=== PATIENT | female | born 1990 | race Hispanic/Latino ===

== ENCOUNTER 2021-06-28 10:18 | Emergency (ER) | payer SELFPAY ==
[2021-06-28] MEDS ORDERED: Iopamidol 300 61% 100 ML VIAL FS ONE (10:27)
[2021-06-28 11:07] LABS: Bilirubin Neg (Negative); Blood, Urine 10 (Negative); Clarity Clear (Clear); Glucose, Urine (Dipstick) Normal (Negative); Ketone, Urine Negative (Negative); Leukocyte Negative (Negative); Nitrite Negative (Negative); Protein, Urine (Dipstick) Negative (Neg-Trace); Urobilinogen Normal mg/dL (Less than 2)
[2021-06-28 11:11] LABS: #Eosinphils 0.2 10x3/uL (0.0-0.5); #Monocytes 0.2 10x3/uL (0.0-1.1); #Neutrophils 3.9 10x3/uL (1.5-8.4); %Basophils 0.5 % (0.0-2.0); %Eosinophils 2.6 % (0.0-6.0); %Lymphocytes 34.2 % (18.0-47.0); %Monocytes 2.5 % (0.0-10.0); Hemoglobin 11.1 g/dL (12.0-15.5); Mean Corpuscular Hemoglobin 21.3 pg (27.0-33.0); Mean Corpuscular Volume 68.8 fl (81.6-98.3); Mean Platelet Volume 10.1 fl (7.4-10.4); Platelet Count 278 10x3/uL (150-450); RBC Distribution Width 20.5 % (11.5-14.5); White Blood Cell (WBC) Count 6.5 10x3/uL (3.5-10.5)
[2021-06-28 11:14] LABS: Pregnancy Test - Urine (BHCG) Negative (Negative); Pregu Control Background? CLEAR/WHITE (CLR/WHITE); Pregu Control Bar Appear? YES (CONTROL BAR)
[2021-06-28 11:27] LABS: Bacteria/HPF Rare-Few HPF (None Seen); RBC/HPF 0-3 HPF (0-3); Squamous Epithelial 0-3 HPF (0-3); WBC/HPF 0-3 HPF (0-3)
[2021-06-28 11:28] LABS: ALT (SGPT) 10 U/L (8-55); AST (SGOT) 20 U/L (5-34); Albumin 4.2 g/dL (3.5-5.0); Alkaline Phosphatase 82 U/L (40-110); Anion Gap 12 mmol/L (10-20); BUN (Urea Nitrogen) 9 mg/dL (7.0-18.7); Bilirubin, Total 0.4 mg/dL (0.2-1.2); Calc. Creatinine Clearance 0 mL/min (70-130); Calcium 9.2 mg/dL (7.8-10.44); Carbon Dioxide 26 mmol/L (22-29); Chloride 105 mmol/L (98-107); Glucose 98 mg/dL (70-105); Potassium 3.8 mmol/L (3.5-5.1); Protein, Total 7.2 g/dL (6.0-8.3); Sodium 139 mmol/L (136-145)
[2021-06-28] MEDS ORDERED: Ondansetron PF 4 MG/2 ML Vial ONE (11:32)
[2021-06-28] MEDS ORDERED: Fentanyl 100 MCG/2 ML VIAL ONE ×2 (11:33→13:03)
[2021-06-28 12:01] LABS: Anisocytosis SLIGHT = 6-15 cells (100X) (0-5/hpf); Microcytosis MODERATE=15-30 cells (100X) (0-5/hpf); Ovalocytes SLIGHT = 2-5 cells (100X) (0-1/hpf)
[2021-06-28 12:02] LABS: Hypochromia SLIGHT = 6-15 cells (100X) (0-5/hpf)
[2021-06-28 12:03] LABS: Platelet Morphology Comment Appears Adequate
== END 2021-06-28 13:58 | disposition home or self-care (01) ==
LOC: CSHERS 10:18
DX: N83.209 Unspecified ovarian cyst, unspecified side (principal)
CPT/HCPCS: 74177; 80053; 81003; 81015; 81025; 83690; 85025; 96374; 96375; 96376; J2405; J3010; Q9967

== ENCOUNTER 2021-07-27 06:18 | Emergency (ER) | payer SELFPAY ==
[2021-07-27 07:30] LABS: #Eosinphils 0.2 10x3/uL (0.0-0.5); #Monocytes 0.2 10x3/uL (0.0-1.1); #Neutrophils 5.1 10x3/uL (1.5-8.4); %Basophils 0.4 % (0.0-2.0); %Eosinophils 2.7 % (0.0-6.0); %Lymphocytes 33.2 % (18.0-47.0); %Monocytes 2.6 % (0.0-10.0); %Neutrophils 60.7 % (40.0-75.0); ALT (SGPT) 14 U/L (8-55); AST (SGOT) 19 U/L (5-34); Albumin 4.1 g/dL (3.5-5.0); Alkaline Phosphatase 87 U/L (40-110); Anion Gap 14 mmol/L (10-20); BUN (Urea Nitrogen) 9 mg/dL (7.0-18.7); Bilirubin, Total 0.2 mg/dL (0.2-1.2); Calc. Creatinine Clearance 0 mL/min (70-130); Calcium 9.2 mg/dL (7.8-10.44); Carbon Dioxide 25 mmol/L (22-29); Chloride 106 mmol/L (98-107); Globulin 3.2 g/dL (2.4-3.5); Glucose 93 mg/dL (70-105); Hemoglobin 10.8 g/dL (12.0-15.5); Lipase 48 U/L (8-78); Mean Corpuscular HGB CONC 30.3 g/dL (32.0-36.0); Mean Corpuscular Hemoglobin 21.3 pg (27.0-33.0); Mean Corpuscular Volume 70.4 fl (81.6-98.3); Mean Platelet Volume 9.3 fl (7.4-10.4); Platelet Count 288 10x3/uL (150-450); Potassium 3.7 mmol/L (3.5-5.1); Protein, Total 7.3 g/dL (6.0-8.3); Red Blood Cell (RBC) Count 5.06 10x6/uL (3.90-5.03); Sodium 141 mmol/L (136-145); White Blood Cell (WBC) Count 8.5 10x3/uL (3.5-10.5)
[2021-07-27] MEDS ORDERED: Ondansetron PF 4 MG/2 ML Vial ONE (07:31)
[2021-07-27] MEDS ORDERED: Fentanyl 100 MCG/2 ML VIAL ONE (07:31)
[2021-07-27 07:40] LABS: Bilirubin Neg (Negative); Blood, Urine Negative (Negative); Clarity Clear (Clear); Glucose, Urine (Dipstick) Normal (Negative); Ketone, Urine Negative (Negative); Leukocyte Negative (Negative); Nitrite Negative (Negative); Protein, Urine (Dipstick) Negative (Neg-Trace); Urobilinogen Normal mg/dL (Less than 2); pH, Urine 6.5 (5.0-9.0)
[2021-07-27 07:42] LABS: Pregnancy Test - Urine (BHCG) Negative (Negative); Pregu Control Background? CLEAR/WHITE (CLR/WHITE); Pregu Control Bar Appear? YES (CONTROL BAR)
[2021-07-27] MEDS ORDERED: Ketorolac Tromethamine 30 MG/ML VIAL ONE (10:09)
== END 2021-07-27 10:50 | disposition home or self-care (01) ==
LOC: CSHERS 06:18
DX: N83.201 Unspecified ovarian cyst, right side (principal)
CPT/HCPCS: 74177; 76856; 80053; 81003; 81025; 83690; 85025; 96361; 96374; 96375; 96376; J1885; J2405; J3010

== ENCOUNTER 2021-08-13 07:54 | Emergency (ER) | payer SELFPAY ==
[2021-08-13] MEDS ORDERED: Ondansetron PF 4 MG/2 ML Vial ONE (08:34)
[2021-08-13] MEDS ORDERED: Ketorolac Tromethamine 30 MG/ML VIAL ONE (08:44)
[2021-08-13 08:48] LABS: Bilirubin Neg (Negative); Blood, Urine 10 (Negative); Clarity Clear (Clear); Glucose, Urine (Dipstick) Normal (Negative); Ketone, Urine Negative (Negative); Leukocyte Negative (Negative); Nitrite Negative (Negative); Protein, Urine (Dipstick) Negative (Neg-Trace); Urobilinogen Normal mg/dL (Less than 2)
[2021-08-13 08:51] LABS: Pregnancy Test - Urine (BHCG) Negative (Negative); Pregu Control Background? CLEAR/WHITE (CLR/WHITE); Pregu Control Bar Appear? YES (CONTROL BAR)
[2021-08-13 09:01] LABS: Bacteria/HPF 2+ HPF (None Seen); RBC/HPF 0-3 HPF (0-3); WBC/HPF 0-3 HPF (0-3)
[2021-08-13 09:14] LABS: #Eosinphils 0.2 10x3/uL (0.0-0.5); #Monocytes 0.2 10x3/uL (0.0-1.1); #Neutrophils 3.2 10x3/uL (1.5-8.4); %Basophils 0.3 % (0.0-2.0); %Eosinophils 3.1 % (0.0-6.0); %Lymphocytes 37.1 % (18.0-47.0); %Monocytes 3.1 % (0.0-10.0); %Neutrophils 56.2 % (40.0-75.0); Hemoglobin 9.9 g/dL (12.0-15.5); Mean Corpuscular HGB CONC 30.9 g/dL (32.0-36.0); Mean Corpuscular Hemoglobin 21.8 pg (27.0-33.0); Mean Corpuscular Volume 70.5 fl (81.6-98.3); Mean Platelet Volume 10.2 fl (7.4-10.4); Platelet Count 257 10x3/uL (150-450); Red Blood Cell (RBC) Count 4.54 10x6/uL (3.90-5.03); White Blood Cell (WBC) Count 5.7 10x3/uL (3.5-10.5)
[2021-08-13 09:30] LABS: ALT (SGPT) 22 U/L (8-55); AST (SGOT) 28 U/L (5-34); Albumin 3.9 g/dL (3.5-5.0); Alkaline Phosphatase 87 U/L (40-110); Anion Gap 12 mmol/L (10-20); BUN (Urea Nitrogen) 8 mg/dL (7.0-18.7); Bilirubin, Total 0.3 mg/dL (0.2-1.2); Calc. Creatinine Clearance 0 mL/min (70-130); Calcium 9.3 mg/dL (7.8-10.44); Carbon Dioxide 26 mmol/L (22-29); Chloride 106 mmol/L (98-107); Glucose 91 mg/dL (70-105); Lipase 35 U/L (8-78); Potassium 3.6 mmol/L (3.5-5.1); Protein, Total 6.9 g/dL (6.0-8.3); Sodium 140 mmol/L (136-145)
[2021-08-13] MEDS ORDERED: Dicyclomine 20 MG/2 ML VIAL ONE (10:58)
[2021-08-13] MEDS ORDERED: Fentanyl 100 MCG/2 ML VIAL ONE (11:00)
== END 2021-08-13 12:05 | disposition home or self-care (01) ==
LOC: CSHERS 07:54
DX: K52.9 Noninfective gastroenteritis and colitis, unspecified (principal)
CPT/HCPCS: 80053; 81003; 81015; 81025; 83690; 85025; 87086; 93005; 96372; 96374; 96375; J0500; J1885; J2405; J3010

== ENCOUNTER 2021-08-30 14:48 | Emergency (ER) | payer SELFPAY ==
[2021-08-30 15:57] LABS: Bilirubin Neg (Negative); Blood, Urine Negative (Negative); Clarity Slightly Cloudy (Clear); Glucose, Urine (Dipstick) Normal (Negative); Ketone, Urine Negative (Negative); Leukocyte Negative (Negative); Nitrite Negative (Negative); Protein, Urine (Dipstick) Negative (Neg-Trace); Urobilinogen Normal mg/dL (Less than 2)
[2021-08-30 15:58] LABS: Pregnancy Test - Urine (BHCG) Negative (Negative); Pregu Control Background? CLEAR/WHITE (CLR/WHITE); Pregu Control Bar Appear? YES (CONTROL BAR)
[2021-08-30 16:08] LABS: #Eosinphils 0.1 10x3/uL (0.0-0.5); #Monocytes 0.2 10x3/uL (0.0-1.1); #Neutrophils 4.5 10x3/uL (1.5-8.4); %Basophils 0.4 % (0.0-2.0); %Eosinophils 1.6 % (0.0-6.0); %Lymphocytes 33.7 % (18.0-47.0); %Monocytes 2.2 % (0.0-10.0); %Neutrophils 61.8 % (40.0-75.0); Mean Corpuscular HGB CONC 31.2 g/dL (32.0-36.0); Mean Corpuscular Hemoglobin 21.8 pg (27.0-33.0); Mean Platelet Volume 9.9 fl (7.4-10.4); Platelet Count 227 10x3/uL (150-450); Red Blood Cell (RBC) Count 5.04 10x6/uL (3.90-5.03); White Blood Cell (WBC) Count 7.3 10x3/uL (3.5-10.5)
[2021-08-30 16:20] LABS: ALT (SGPT) 10 U/L (8-55); AST (SGOT) 25 U/L (5-34); Albumin 4.1 g/dL (3.5-5.0); Alkaline Phosphatase 89 U/L (40-110); Anion Gap 13 mmol/L (10-20); BUN (Urea Nitrogen) 11 mg/dL (7.0-18.7); Bilirubin, Total 0.4 mg/dL (0.2-1.2); Calc. Creatinine Clearance 0 mL/min (70-130); Calcium 9.3 mg/dL (7.8-10.44); Carbon Dioxide 20 mmol/L (22-29); Chloride 108 mmol/L (98-107); Estimated GFR 98; Globulin 3.3 g/dL (2.4-3.5); Glucose 104 mg/dL (70-105); Potassium 3.4 mmol/L (3.5-5.1); Protein, Total 7.4 g/dL (6.0-8.3); Sodium 138 mmol/L (136-145)
[2021-08-30] MEDS ORDERED: Ondansetron PF 4 MG/2 ML Vial ONE (17:42)
[2021-08-30] MEDS ORDERED: Ketorolac Tromethamine 30 MG/ML VIAL ONE (17:42)
[2021-08-30 18:50] LABS: SARS-CoV-2 NAA Rapid Test Not Detected (NotDetected)
[2021-08-30] MEDS ORDERED: Dicyclomine 20 MG/2 ML VIAL ONE (18:54)
== END 2021-08-30 19:18 | disposition home or self-care (01) ==
LOC: CSHERS 14:48
DX: K29.00 Acute gastritis without bleeding (principal); Z20.822 Contact with and (suspected) exposure to COVID-19
CPT/HCPCS: 36415; 80053; 81003; 81025; 83690; 85025; 96361; 96372; 96374; 96375; J1885; J2405

== ENCOUNTER 2021-09-20 07:20 | Emergency (ER) | payer SELFPAY ==
[2021-09-20] MEDS ORDERED: Ondansetron ODT 4 MG TAB ONE (08:36)
[2021-09-20 08:53] LABS: #Eosinphils 0.2 10x3/uL (0.0-0.5); #Monocytes 0.2 10x3/uL (0.0-1.1); #Neutrophils 4.4 10x3/uL (1.5-8.4); %Basophils 0.3 % (0.0-2.0); %Eosinophils 2.2 % (0.0-6.0); %Lymphocytes 28.8 % (18.0-47.0); %Monocytes 3.4 % (0.0-10.0); Hemoglobin 10.2 g/dL (12.0-15.5); Mean Corpuscular HGB CONC 30.9 g/dL (32.0-36.0); Mean Corpuscular Hemoglobin 21.6 pg (27.0-33.0); Mean Corpuscular Volume 69.9 fl (81.6-98.3); Mean Platelet Volume 9.7 fl (7.4-10.4); Platelet Count 247 10x3/uL (150-450); Red Blood Cell (RBC) Count 4.72 10x6/uL (3.90-5.03); White Blood Cell (WBC) Count 6.8 10x3/uL (3.5-10.5)
[2021-09-20 09:01] LABS: BHCG - Serum Negative (NEGATIVE); Pregs Control Background? CLEAR/WHITE (CLR/WHITE); Pregs Control Bar Appear? YES (CONTROL BAR)
[2021-09-20 09:08] LABS: ALT (SGPT) 9 U/L (8-55); AST (SGOT) 16 U/L (5-34); Albumin 3.8 g/dL (3.5-5.0); Alkaline Phosphatase 85 U/L (40-110); Anion Gap 13 mmol/L (10-20); BUN (Urea Nitrogen) 7 mg/dL (7.0-18.7); Bilirubin, Total 0.4 mg/dL (0.2-1.2); CK (CPK) 66 U/L (29-168); Calc. Creatinine Clearance 0 mL/min (70-130); Calcium 8.9 mg/dL (7.8-10.44); Carbon Dioxide 24 mmol/L (22-29); Chloride 107 mmol/L (98-107); Estimated GFR 109; Globulin 2.8 g/dL (2.4-3.5); Glucose 93 mg/dL (70-105); Lipase 23 U/L (8-78); Potassium 3.9 mmol/L (3.5-5.1); Protein, Total 6.6 g/dL (6.0-8.3); Sodium 140 mmol/L (136-145)
[2021-09-20 09:11] LABS: Platelet Morphology Comment Appears Adequate
[2021-09-20 09:13] LABS: Elliptocytes SLIGHT = 2-5 cells (100X) (0-1/hpf); Tear Drops SLIGHT = 2-5 cells (100X) (0-1/hpf)
[2021-09-20 09:14] LABS: Anisocytosis SLIGHT = 6-15 cells (100X) (0-5/hpf); Hypochromia SLIGHT = 6-15 cells (100X) (0-5/hpf); Macrocytosis SLIGHT = 6-15 cells (100X) (0-5/hpf); Microcytosis SLIGHT = 6-15 cells (100X) (0-5/hpf)
== END 2021-09-20 09:48 | disposition home or self-care (01) ==
LOC: CSHERS 07:20
DX: B34.9 Viral infection, unspecified (principal)
CPT/HCPCS: 36415; 71045; 80053; 82550; 83690; 84484; 84703; 85025; 93005; Q0162

== ENCOUNTER 2021-09-20 19:43 | Emergency (ER) | payer SELFPAY ==
[~2021-09-20 19:43] MED LIST: Iopamidol 300 61% 100 ML VIAL FS ONE
[2021-09-20] MEDS ORDERED: Ibuprofen 200 MG TAB ONE (21:07)
[2021-09-20] MEDS ORDERED: Acetaminophen 500 MG TAB ONE (21:08)
[2021-09-20 21:18] LABS: Bilirubin Neg (Negative); Blood, Urine 10 (Negative); Clarity Clear (Clear); Glucose, Urine (Dipstick) 50 mg/dL (Negative); Ketone, Urine 5 mg/dL (Negative); Leukocyte Negative (Negative); Protein, Urine (Dipstick) 30 mg/dl (Neg-Trace); Specific Gravity, Urine 1.025 (1.002-1.036)
[2021-09-20 21:36] LABS: Nitrite Positive (Negative)
[2021-09-20 21:38] LABS: Bacteria/HPF 1+ HPF (None Seen); RBC/HPF 0-3 HPF (0-3); Squamous Epithelial 0-3 HPF (0-3); WBC/HPF 0-3 HPF (0-3)
[2021-09-20 21:39] LABS: Calcium Oxalate Crystals 2+ HPF (None Seen)
== END 2021-09-20 23:55 | disposition home or self-care (01) ==
LOC: CSHERS 19:43
DX: H10.9 Unspecified conjunctivitis (principal); I45.4 Nonspecific intraventricular block; J45.909 Unspecified asthma, uncomplicated
CPT/HCPCS: 74177; 81003; 81015; Q9967

== ENCOUNTER 2021-09-30 10:18 | Emergency (ER) | payer OTHER, SELFPAY ==
[2021-09-30] MEDS ORDERED: Ketorolac Tromethamine 30 MG/ML VIAL ONE (11:12)
[2021-09-30] MEDS ORDERED: Ondansetron ODT 4 MG TAB ONE (11:12)
== END 2021-09-30 12:35 | disposition home or self-care (01) ==
LOC: CSHERS 10:18
DX: S06.0X9A Concussion with loss of consciousness of unspecified duration, initial encounter (principal); S13.4XXA Sprain of ligaments of cervical spine, initial encounter; S10.93XA Contusion of unspecified part of neck, initial encounter; S00.81XA Abrasion of other part of head, initial encounter; W01.198A Fall on same level from slipping, tripping and stumbling with subsequent striking against other object, initial encounter
CPT/HCPCS: 70450; 70486; 72125; 96372; J1885; Q0162

== ENCOUNTER 2021-10-12 13:53 | Emergency (ER) | payer SELFPAY | END 2021-10-12 15:42 | disposition home or self-care (01) | LOC: CSHERS 13:53 | DX: R51.9 Headache, unspecified (principal); R11.2 Nausea with vomiting, unspecified | CPT/HCPCS: 99283 ==

== ENCOUNTER 2021-10-23 23:07 | Inpatient (IN) | payer SELFPAY ==
[2021-10-24 01:49] LABS: Bilirubin Neg (Negative); Blood, Urine Negative (Negative); Clarity Clear (Clear); Glucose, Urine (Dipstick) Normal (Negative); Ketone, Urine Negative (Negative); Leukocyte Negative (Negative); Nitrite Negative (Negative); Protein, Urine (Dipstick) Negative (Neg-Trace); Urobilinogen Normal mg/dL (Less than 2)
[2021-10-24 01:57] LABS: Pregnancy Test - Urine (BHCG) Negative (Negative); Pregu Control Background? CLEAR/WHITE (CLR/WHITE); Pregu Control Bar Appear? YES (CONTROL BAR)
[2021-10-24] MEDS ORDERED: HYDROmorphone 0.5 MG/0.5 ML SYRINGE ONE (02:24)
[2021-10-24] MEDS ORDERED: Ketorolac Tromethamine 30 MG/ML VIAL ONE (02:24)
[2021-10-24 02:48] LABS: #Eosinphils 0.2 10x3/uL (0.0-0.5); #Monocytes 0.2 10x3/uL (0.0-1.1); #Neutrophils 4.9 10x3/uL (1.5-8.4); %Basophils 0.4 % (0.0-2.0); %Eosinophils 2.4 % (0.0-6.0); %Lymphocytes 37.5 % (18.0-47.0); %Neutrophils 57.5 % (40.0-75.0); Hemoglobin 10.3 g/dL (12.0-15.5); Mean Corpuscular HGB CONC 31.9 g/dL (32.0-36.0); Mean Corpuscular Hemoglobin 21.7 pg (27.0-33.0); Mean Platelet Volume 10.1 fl (7.4-10.4); Platelet Count 237 10x3/uL (150-450); RBC Distribution Width 17.1 % (11.5-14.5); Red Blood Cell (RBC) Count 4.75 10x6/uL (3.90-5.03); White Blood Cell (WBC) Count 8.5 10x3/uL (3.5-10.5)
[2021-10-24 02:55] LABS: BHCG - Serum Negative (NEGATIVE); Pregs Control Background? CLEAR/WHITE (CLR/WHITE); Pregs Control Bar Appear? YES (CONTROL BAR)
[2021-10-24 03:02] LABS: ALT (SGPT) 11 U/L (8-55); AST (SGOT) 17 U/L (5-34); Alkaline Phosphatase 98 U/L (40-110); Anion Gap 13 mmol/L (10-20); BUN (Urea Nitrogen) 12 mg/dL (7.0-18.7); Bilirubin, Total 0.4 mg/dL (0.2-1.2); Calc. Creatinine Clearance 0 mL/min (70-130); Calcium 9.1 mg/dL (7.8-10.44); Carbon Dioxide 22 mmol/L (22-29); Chloride 108 mmol/L (98-107); Estimated GFR 113; Glucose 94 mg/dL (70-105); Lipase 43 U/L (8-78); Magnesium 1.8 mg/dL (1.6-2.6); Potassium 3.7 mmol/L (3.5-5.1); Sodium 139 mmol/L (136-145)
[2021-10-24] MEDS ORDERED: Haloperidol Lactate 5 MG/ML VIAL ONE (04:17)
[2021-10-24] MEDS ORDERED: diphenhydrAMINE 50 MG/ML VIAL ONE (04:17)
[2021-10-24] MEDS ORDERED: Midazolam HCl 2 mg/2 ml Vial ONE (04:49)
[2021-10-24] MEDS ORDERED: Magnesium 2 GM/50 ML BAG (IN WATER) ONE (04:50)
[2021-10-24] MEDS ORDERED: Metoprolol Tartrate 5 MG/5 ML VIAL ONE (06:18)
[2021-10-24] MEDS ORDERED: Metoprolol Tartrate 25 MG TAB ONE (08:05)
[2021-10-24] MEDS ORDERED: Acetaminophen 325 MG TAB PO PRN (09:32)
[2021-10-24 09:40] LABS: Acetaminophen Less than 10.0 mcg/mL (10.0-30.0); Alcohol Less than 10 mg/dL (Less than 10); Salicylate Less than 8.0 mg/dL (15.0-30.0)
[2021-10-24 10:52] LABS: Troponin I 0.023 ng/mL (< 0.028)
[2021-10-24] MEDS ORDERED: Iron, Sodium Ferric Gluconate 250 MG, Admixture Fee 1 EACH in Sodium Chloride 0.9% 250 ... IVPB SCH (11:00)
[2021-10-24] MEDS ORDERED: Iopamidol 370 76% 100 ML VIAL ONE (12:00)
[2021-10-24] MEDS ORDERED: Famotidine 20 MG TAB PO SCH (21:00)
== END 2021-10-24 12:52 | disposition left against medical advice (07) | DRG 310 ==
LOC: CSHERS 23:07 → CSHERHOLD 10-24 07:46 → CSHTELE 10-24 10:16
PROVIDERS: ADMIT Hospitalist; ATTEND Student in an Organized Health Care Education/Training Program
DX: I48.92 Unspecified atrial flutter (principal); I44.7 Left bundle-branch block, unspecified; R10.9 Unspecified abdominal pain; K76.0 Fatty (change of) liver, not elsewhere classified; J45.909 Unspecified asthma, uncomplicated; D50.9 Iron deficiency anemia, unspecified; Z79.899 Other long term (current) drug therapy; Z90.49 Acquired absence of other specified parts of digestive tract; Z88.5 Allergy status to narcotic agent
CPT/HCPCS: 36415; 71275; 74174; 80053; 80307; 81003; 81025; 83605; 83690; 83735; 83880; 84443; 84484; 84703; 85025; 93005; 96361; 96365; 96374; 96375; J1170; J1200; J1630; J1885; J2250; J3475; Q9967

== ENCOUNTER 2021-11-08 07:26 | Emergency (ER) | payer SELFPAY ==
[2021-11-08] MEDS ORDERED: Metoclopramide HCl 10 MG/2 ML VIAL ONE (08:00)
[2021-11-08] MEDS ORDERED: diphenhydrAMINE 50 MG/ML VIAL ONE (08:00)
[2021-11-08] MEDS ORDERED: Ketorolac Tromethamine 30 MG/ML VIAL ONE (08:01)
[2021-11-08 08:21] LABS: #Eosinphils 0.2 10x3/uL (0.0-0.5); #Monocytes 0.2 10x3/uL (0.0-1.1); #Neutrophils 4.2 10x3/uL (1.5-8.4); %Eosinophils 2.7 % (0.0-6.0); %Lymphocytes 23.9 % (18.0-47.0); %Monocytes 2.7 % (0.0-10.0); %Neutrophils 70.2 % (40.0-75.0); Mean Corpuscular HGB CONC 31.7 g/dL (32.0-36.0); Mean Corpuscular Hemoglobin 22.3 pg (27.0-33.0); Mean Corpuscular Volume 70.2 fl (81.6-98.3); Platelet Count 279 10x3/uL (150-450); Red Blood Cell (RBC) Count 4.94 10x6/uL (3.90-5.03)
[2021-11-08 08:34] LABS: BHCG - Serum Negative (NEGATIVE); Pregs Control Background? CLEAR/WHITE (CLR/WHITE); Pregs Control Bar Appear? YES (CONTROL BAR)
[2021-11-08 08:42] LABS: ALT (SGPT) 29 U/L (8-55); AST (SGOT) 53 U/L (5-34); Albumin 4.1 g/dL (3.5-5.0); Alkaline Phosphatase 137 U/L (40-110); Anion Gap 15 mmol/L (10-20); BUN (Urea Nitrogen) 10 mg/dL (7.0-18.7); Bilirubin, Total 0.4 mg/dL (0.2-1.2); Calc. Creatinine Clearance 0 mL/min (70-130); Carbon Dioxide 25 mmol/L (22-29); Chloride 103 mmol/L (98-107); Estimated GFR 106; Globulin 2.8 g/dL (2.4-3.5); Glucose 100 mg/dL (70-105); Lipase 25 U/L (8-78); Potassium 3.6 mmol/L (3.5-5.1); Protein, Total 6.9 g/dL (6.0-8.3); Sodium 139 mmol/L (136-145)
[2021-11-08 09:01] LABS: Free T4 (Free Thyroxine) 1.22 ng/dL (0.70-1.48); Thyroid Stimulating Hormone 0.8143 uIU/mL (0.35-4.94)
[2021-11-08 09:15] LABS: SARS-CoV-2 NAA Rapid Test Not Detected (NotDetected)
[2021-11-08 09:23] LABS: Bilirubin Neg (Negative); Blood, Urine Negative (Negative); Clarity Clear (Clear); Glucose, Urine (Dipstick) Normal (Negative); Ketone, Urine 150 mg/dL (Negative); Leukocyte Negative (Negative); Nitrite Negative (Negative); Protein, Urine (Dipstick) 15 mg/dl (Neg-Trace); Specific Gravity, Urine 1.015 (1.002-1.036); pH, Urine 6.5 (5.0-9.0)
[2021-11-08] MEDS ORDERED: Iopamidol 300 61% 100 ML VIAL FS ONE (14:43)
== END 2021-11-08 09:38 | disposition home or self-care (01) ==
LOC: CSHERS 07:26
DX: R10.31 Right lower quadrant pain (principal); R11.2 Nausea with vomiting, unspecified; E04.1 Nontoxic single thyroid nodule; Z20.822 Contact with and (suspected) exposure to COVID-19
CPT/HCPCS: 71045; 74177; 80053; 81003; 83690; 84439; 84443; 84484; 84703; 85025; 93005; 96374; 96375; J1200; J1885; J2765; Q9967

== ENCOUNTER 2021-12-28 10:33 | Emergency (ER) | payer SELFPAY ==
[2021-12-28] MEDS ORDERED: Acetaminophen 500 MG TAB ONE (12:38)
[2021-12-28] MEDS ORDERED: Ibuprofen 200 MG TAB ONE (12:39)
[2021-12-28] MEDS ORDERED: Dexamethasone 10 MG/ML VIAL ONE (12:39)
== END 2021-12-28 12:58 | disposition home or self-care (01) ==
LOC: CSHERS 10:33
DX: J02.8 Acute pharyngitis due to other specified organisms (principal)
CPT/HCPCS: 87081; 87430; 99283; J1100